=== PATIENT | female | born 2000 | race Caucasian/White ===

== ENCOUNTER 2019-02-13 19:49 | Emergency (ER) | payer SELFPAY ==
--- NOTE | 2019-02-13 21:18 | EDM.PDOC ---
ED HPI GENERAL MEDICAL PROBLEM - General Chief Complaint: Upper Extremity Injury/Pain Stated Complaint: RIGHT HAND BROKEN PER PT. PLEASE CHECK Time Seen by Provider: 02/13/19 21:18 Source of Information: Reports: Patient - History of Present Illness INITIAL COMMENTS - FREE TEXT/NARRATIVE: ED with c/o pain swelling to right hand, hit wall last night, sore on left index finger . Unsure how got sore on finger, started like a blister then "chewed it off. Has been using calamine lotion on it but not helping and lotion stings. Right Hand Pain Score (Numeric/FACES): 10 - Related Data Allergies Allergy/AdvReac Type Severity Reaction Status Date / Time No Known Allergies Allergy Verified 02/13/19 20:01 Home Meds: Home Meds Divalproex Sodium [Depakote ER] 1,250 mg PO BEDTIME 02/13/19 [History] Past Medical History Psychiatric History: Reports: Bipolar, Panic Attack Social & Family History - Tobacco Use Smoking Status *Q: Current Every Day Smoker Years of Tobacco use: 7 Packs/Tins Daily: 3 - Caffeine Use Caffeine Use: Reports: Energy Drinks - Recreational Drug Use Recreational Drug Use: No ED EXAM, GENERAL - Physical Exam Exam: See Below Exam Limited By: No Limitations General Appearance: Alert, No Apparent Distress Eye Exam: Bilateral Eye: EOMI Ears: Normal External Exam Nose: Normal Inspection Extremities: Other (contusion right hand distal MCP 3-5. tender alterl 5th MCP shaft.) Neurological: Alert, Oriented, Normal Cognition Psychiatric: Other (flight of ideas, inattentive rapid speech, dressed in fleece pajama's, slippers, 4 large necklaces, ) Skin Exam: Other (3mm circular lesion left mid index finger palpar surface, shallow no redness no drainage) Course - Vital Signs Last Recorded V/S: Last Vital Signs Temp 98.4 F 02/13/19 19:56 Pulse 110 H 02/13/19 19:56 Resp 24 H 02/13/19 19:56 BP 152/100 H 02/13/19 19:56 Pulse Ox 100 02/13/19 19:56 - Orders/Labs/Meds Orders: Active Orders 24 hr Category Date Time Status Hand Comp Min 3V Rt [CR] Urgent Exams 02/13/19 21:18 Taken - Radiology Interpretation Free Text/Narrative:: [facility] [place] [facility] Final Radiology Report Call: [phone] assistance Online chat: [email or web address] Name: MICHAEL GUARDADO Age: 18Years F Date: 02/13/2019 SSN: -- : [id number] Study: XR HAND COMPLETE MIN OF 3 VIEWS RIGHT Requesting Physician: MAYNOR LOZANO Images: 3 Addl Studies: Provided Clinical History: Contrast: Contrast Medium: Contrast Amount: Contrast Method: CONFIDENTIALITY STATEMENT This report is intended only for use by the referring physician, and only in accordance with law. If you received this in error, call [phone]. Page 1 of 1 PROCEDURE INFORMATION: Exam: XR Right Hand Exam date and time: 02/13/2019 9:18 PM Clinical history: 18 years old, female; Injury or trauma; Injury history: Hit wall; Initial encounter; Blunt trauma (contusions or hematomas; Hand; Right TECHNIQUE: Imaging protocol: XR Right hand. Views: 3 or more views. COMPARISON: No relevant prior studies available. FINDINGS: Bones/joints: No acute fracture. Soft tissues: Unremarkable. IMPRESSION: No acute osseous process. Thank you for allowing us to participate in the care of your patient. Dictated and Authenticated by: Austin Stafford MD 02/13/2019 9:44 PM Central Time ([place] & [place] Departure - Departure Time of Disposition: 21:47 Disposition: Home, Self-Care 01 Condition: Good Clinical Impression: Right hand pain - Discharge Information *PRESCRIPTION DRUG MONITORING PROGRAM REVIEWED*: No *COPY OF PRESCRIPTION DRUG MONITORING REPORT IN PATIENT AME: No Instructions: Hand Pain Forms: ED Department Discharge Additional Instructions: tylenol or ibuprofen alternating every 4 hours as needed for discomfort dulce wrap for comfort follow up as needed antibiotic ointment, bandaide to left finger - My Orders Last 24 Hours: My Active Orders 02/13/19 21:18 Hand Comp Min 3V Rt [CR] Urgent - Assessment/Plan Last 24 Hours: My Active Orders 02/13/19 21:18 Hand Comp Min 3V Rt [CR] Urgent
== END 2019-02-13 21:57 | disposition home or self-care (01) ==
LOC: DL.ED 19:49
DX: M79.641 Pain in right hand (principal); F17.210 Nicotine dependence, cigarettes, uncomplicated; W22.01XA Walked into wall, initial encounter
CPT/HCPCS: 73130-RT; 99283-25